=== PATIENT | female | born 1970 | race Caucasian/White ===

== ENCOUNTER 2021-12-06 01:55 | Day surgery (SDC) | payer BC, SELFPAY ==
[2021-11-23 14:10] VITALS: BMI 33.2
--- NOTE | 2021-12-05 17:23 | PM.HPGS ---
History of Present Illness History of Present Illness Consent: Risks, benefits, and alternatives have been discussed and questions answered. Patient agrees to proceed with procedure. Chief complaint: neoplasm screening Narrative: Sujey Marmolejo is a 51 year old female referred for colon cancer screening. Review of Systems Review of Systems: All systems reviewed & are unremarkable except as noted in HPI and below PMFSH Past Medical History Medical History Broken ankle Endometriosis determined by laparoscopy Essential (primary) hypertension Migraine NOS/intractable Unspecified vitamin D deficiency Surgical History Surgical History H/O section Family History Family History Grandparent Diabetes mellitus Family history of Parkinson's disease Family history of malignant neoplasm of ovary Mother Diabetes mellitus Dementia Father Patient's father is Acute myocardial infarction Other Carcinoma of colon Family history of cardiovascular disease Family history of malignant neoplasm Family history of malignant neoplasm of breast Hypertension Social History Social History Years smoked: 10 Smoking status: Former smoker Tobacco type: cigarettes Smoking end date: 11/04/98 Alcohol intake: current Spiritual care concerns: No Meds Home Medications and Allergies Home Medications Medication Instructions Recorded Confirmed Type Tribenzor 20 mg-5 mg-12.5 mg tablet 1 tablet PO DAILY #90 tablet NS 09/12/20 12/06/21 Rx montelukast 10 mg tablet See Rx Instructions .ROUTE 12/07/20 12/06/21 Rx .COMPLEX #90 tablet spironolactone 50 mg tablet 100 mg PO BID 10/16/21 12/06/21 History sumatriptan succinate 25 mg tablet See Rx Instructions PO .COMPLEX #9 10/17/21 12/06/21 Rx tablet Allergies Allergy/AdvReac Type Severity Reaction Status Date / Time Penicillins Allergy Unknown Skin Verified 12/06/21 07:57 Reaction Exam Resp: Auscultation: clear to auscultation bilaterally Cardio: Rate: regular rate Rhythm: regular rhythm GI: GI Palp: Yes Soft to palpation and No Tenderness to palpation present (GI) Assessment and Plan Assessment and plan (1) Colon cancer screening: Code(s): Z12.11 - Encounter for screening for malignant neoplasm of colon Status: Acute Assessment and Plan: Colonoscopy with possible biopsy or polypectomy or cautery or injection of substances.
[2021-12-06 07:58] VITALS: BP 151/110; PULSE 113; RESP 17; TEMP 36.4; O2SAT 98; BMI 31.8
[2021-12-06] MEDS: LACTATED RINGERS 1,000 ML 150 ML IV CONT (08:06)
--- NOTE | 2021-12-06 08:12 | P.PNAN_ITS ---
Anes - Initial Pre Proc Eval Procedure: Operation Date: 12/06/21 09:15 Proposed Procedures p Screening Colonoscopy - Aleksander Fonseca MD Date/Time: 12/06/21 08:12 Surgeon: Aleksander Fonseca MD Pre Op Diagnosis: neoplasm screening Patient Data Age: 51 Gender: F Height: 1.6 m Weight: 81.5 kg Last Vital Signs Temp 36.4 C 12/06/21 07:58 Pulse 113 H 12/06/21 07:58 Resp 17 12/06/21 07:58 BP 151/110 H 12/06/21 07:58 Pulse Ox 98 12/06/21 07:58 Allergies Allergy/AdvReac Type Severity Reaction Status Date / Time Penicillins Allergy Unknown Skin Verified 12/06/21 07:57 Reaction Home Medications Medication Instructions Recorded Confirmed Type Tribenzor 20 mg-5 mg-12.5 mg tablet 1 tablet PO DAILY #90 tablet NS 09/12/20 12/06/21 Rx montelukast 10 mg tablet See Rx Instructions .ROUTE 12/07/20 12/06/21 Rx .COMPLEX #90 tablet spironolactone 50 mg tablet 100 mg PO BID 10/16/21 12/06/21 History sumatriptan succinate 25 mg tablet See Rx Instructions PO .COMPLEX #9 10/17/21 12/06/21 Rx tablet Patient hx anesthesia problems: none Family hx anesthesia problems: none Results Review: All pre-operative results and documents have been reviewed as part of the pre-operative evaluation. [facility] Past Medical History Medical History (Updated 12/06/21 @ 08:12 by Dawit Turcios MD) Broken ankle Endometriosis determined by laparoscopy Essential (primary) hypertension Migraine NOS/intractable Unspecified vitamin D deficiency Surgical History Surgical History H/O section Family History Family History Grandparent Diabetes mellitus Family history of Parkinson's disease Family history of malignant neoplasm of ovary Mother Diabetes mellitus Dementia Father Patient's father is Acute myocardial infarction Other Carcinoma of colon Family history of cardiovascular disease Family history of malignant neoplasm Family history of malignant neoplasm of breast Hypertension Social History Social History Years smoked: 10 Smoking status: Former smoker Tobacco type: cigarettes Smoking end date: 11/04/98 Alcohol intake: current Spiritual care concerns: No Anes - Eval Final PreProcedure Day of Procedure 12/06/21 08:12 Patient weight: obese Heart: regular rate and rhythm Lungs: clear to auscultation Airway: Mallampati scale class II Neurological: alert and oriented Last oral intake: >/= 8 hours ASA classification: II Emergent: no Anesthetic plan: proceed Anesthesia type and monitoring: general GIVS and standard monitoring Results Review: All pre-operative results and documents have been reviewed as part of the pre-operative evaluation. Informed Consent: The patient's anesthetic plan and its attendant risks and benefits were discussed with the patient/family/POA. Questions were solicited and answers provided to the satisfaction of the patient/family/POA.
[2021-12-06 09:37] VITALS: BP 110/69; PULSE 87; RESP 23; O2SAT 99
[2021-12-06 09:47] VITALS: BP 105/71; PULSE 82; RESP 20; O2SAT 98
[2021-12-06 09:57] VITALS: BP 136/88; PULSE 85; RESP 18; O2SAT 98
== END 2021-12-06 10:15 | disposition home or self-care (01) ==
PROVIDERS: PCP Family Medicine; Visit Provider Internal Medicine Gastroenterology
PROC: 0DJD8ZZ Inspection of Lower Intestinal Tract, Via Natural or Artificial Opening Endoscopic (ICD-10-PCS; CPT 45378; principal; 2021-12-06 09:15)
DX: Z12.11 Encounter for screening for malignant neoplasm of colon (principal); K57.30 Diverticulosis of large intestine without perforation or abscess without bleeding; I10 Essential (primary) hypertension; Z87.891 Personal history of nicotine dependence; E66.9 Obesity, unspecified; Z68.31 Body mass index [BMI] 31.0-31.9, adult
CPT/HCPCS: 45378; J2704; J7120

== ENCOUNTER → 2022-01-05 14:12 | Outpatient (CLI) | payer BC, SELFPAY ==
--- NOTE | ~2022-01-05 | DEXA_ITS ---
Bone Density Report Name: EDUIN FARIA Age: 51 Sex: Female Ethnicity: White Date of : 1970 Indication: postmenopausal; screening for osteoporosis; height loss; Referring Provider: THOMAS, ROBIN Study: Bone densitometry was performed. Exam Date: January 05, 2022 Accession number: [id number] Bone Density: Region BMD T-score Z-score Classification AP Spine (L1-L4) 0.954 -0.8 0.1 Normal Femoral Neck (Left) 0.821 -0.3 0.7 Normal Total Hip (Left) 0.960 0.1 0.7 Normal Femoral Neck (Right) 0.785 -0.6 0.4 Normal Total Hip (Right) 0.937 0.0 0.6 Normal Total Hip Mean 0.949 0.1 0.7 Normal World Health Organization criteria for BMD impression classify patients as: Normal (T-score at or above -1.0), Osteopenia (T-score between -1.0 and -2.5), or Osteoporosis (T-score at or below -2.5). 10-year Fracture Risk: FRAX not reported because: All T-scores for Spine Total, Hip Total, Femoral Neck at or above -1.0 Clinical Information Provided by Patient: Has used the following medications: Vitamin D Patient maximum height was 63 Menopause Age: 33 Drinks caffeinated beverages Onset of menses at age 9 Number of children 2 Impression: The patient has normal bone mass. Discussion: BONE DENSITY IS ABOVE THE MINIMUM DESIRABLE LEVEL AT ALL SKELETAL SITES TESTED. This patient?s bone mineral density is above the minimum desirable level (T-score -1.0 or better) at all sites measured. The patient should follow a healthful lifestyle (good nutrition with adequate calcium and vitamin D, and appropriate weight-bearing exercise). Follow-Up: Consider repeating this study in 5 years or sooner if there is some new clinical indication. Reported by: [facility] on 01/05/2022 2:42:00 PM. Reviewed, dictated and finalized at location AAnali [facility] CENTER[facility]hav[facility]
--- NOTE | ~2022-01-05 | MM_ITS ---
EXAMINATION: MM screening rajesh BI w ester HISTORY: Screening mammogram TECHNIQUE: Craniocaudal and mediolateral oblique 3-D tomosynthesis images were obtained and synthetic 2-D images were generated. CAD analysis was submitted and interpreted. COMPARISON: No prior mammogram is available for comparison at this institution. BREAST PARENCHYMAL COMPOSITION: There are scattered areas of fibroglandular density. FINDINGS: RIGHT BREAST: There is a possible mass in the middle third of the central breast 7 cm from the nipple . LEFT BREAST: A mass is present in the anterior third of the outer breast 3 cm from the nipple. IMPRESSION: 1. Bilateral breast findings as described above. 2. Additional mammographic views and possible breast ultrasound are recommended. BI-RADS Category 0: Incomplete: Needs additional imaging evaluation. Reviewed, dictated and finalized at location A. DENT SERVICES SUPERVISOR IMPRESSION: 1. Bilateral breast findings as described above. 2. Additional mammographic views and possible breast ultrasound are recommended . BI-RADS Category 0: Incomplete: Needs additional imaging evaluation.
== END ==
PROVIDERS: PCP Family Medicine; Visit Provider Nurse Practitioner
DX: Z12.31 Encounter for screening mammogram for malignant neoplasm of breast (principal); Z78.0 Asymptomatic menopausal state; R92.8 Other abnormal and inconclusive findings on diagnostic imaging of breast
CPT/HCPCS: 77063; 77067; 77080

== ENCOUNTER → 2022-01-19 08:08 | Outpatient (CLI) | payer BC, SELFPAY ==
--- NOTE | ~2022-01-19 | MMUS_ITS ---
EXAMINATION: MM diagnostic rajesh BI w ester, US breast BI limited HISTORY: Left breast mass and possible right breast mass on screening mammogram TECHNIQUE: Additional 3-D tomosynthesis images of the breasts were performed and synthetic 2-D images were generated. CAD analysis was submitted and interpreted. High resolution limited bilateral breast ultrasound was performed. COMPARISON: 01/05/2022 FINDINGS: MAMMOGRAPHIC FINDINGS: Left breast: There is a 5 mm oval, obscured, equal density mass in the anterior third of the breast a t the 3:00 location 3 cm from the nipple. Right breast: An asymmetry persists in the middle third of the lower breast at the 6:00 location 7 cm from the nipple on the craniocaudal view. ULTRASOUND: Left breast: There is a 5 mm cyst at the 3:00 location 3 cm from the nipple. Right breast: There is a 3 mm cyst at the 7:00 location 4 cm from the nipple. A 4 mm mass at the 6:00 location 5 cm from the nipple has an appearance suggestive of an intramammary lymph node. IMPRESSION: 1. Probably benign right breast mass. 2. Right diagnostic mammogram and ultrasound. BI-RADS category 3, probably benign findings. Reviewed, dictated and finalized at location A. IMPRESSION: 1. Probably benign right breast mass. 2. Right diagnostic mammogram and ultrasound. BI-RADS category 3, probably benign findings.
== END ==
PROVIDERS: PCP Family Medicine; Visit Provider Obstetrics & Gynecology Gynecology
DX: R92.8 Other abnormal and inconclusive findings on diagnostic imaging of breast (principal)
CPT/HCPCS: 76642; 77062; 77066; G0279

== ENCOUNTER → 2022-07-26 08:13 | Outpatient (CLI) | payer BC, SELFPAY ==
--- NOTE | ~2022-07-26 | MMUS_ITS ---
EXAMINATION: MM diagnostic rajesh RT w ester, US breast RT limited HISTORY: Six-month follow-up for probably benign right breast mass TECHNIQUE: Craniocaudal, mediolateral, and mediolateral oblique 3-D tomosynthesis images of the right breast were performed and synthetic 2-D images were generated. CAD analysis was submitted and interp reted. High resolution limited right breast ultrasound was performed. COMPARISON: 01/19/2022, 01/05/2022 BREAST PARENCHYMAL COMPOSITION: There are scattered areas of fibroglandular density. FINDINGS: MAMMOGRAPHIC FINDINGS: There is a stable 6 mm low-density, circumscribed mass at the 6:00 location 6.8 cm from the nipple in the middle third of the breast. No suspicious interval change is identified. ULTRASOUND: There is a stable 4 mm oval, circumscribed, parallel, hypoechoic mass at the 7:00 location 6 cm from the nipple with a central hypoechoic component. There is a 2 mm cyst at the 7:30 location 4 cm from t he nipple. IMPRESSION: 1. Stable, probably benign right breast mass. 2. Recommend 6 month follow-up diagnostic mammogram and right breast ultrasound. BI-RADS category 3, probably benign findings. Reviewed, dictated and finalized at location A. IMPRESSION: 1. Stable, probably benign right breast mass. 2. Recommend 6 month follow-up diagnostic mammogram and right breast ultrasound . BI-RADS category 3, probably benign findings.
== END ==
PROVIDERS: PCP Family Medicine; Visit Provider Obstetrics & Gynecology Gynecology
DX: N63.10 Unspecified lump in the right breast, unspecified quadrant (principal)
CPT/HCPCS: 76642; 77061; 77065; G0279

== ENCOUNTER 2022-12-14 11:35 | Outpatient (CLI) | payer BC, SELFPAY ==
[2022-12-14 19:55] LABS: Anion Gap 6 mmol/L (8-16); Blood Urea Nitrogen 17 mg/dL (7-17); Calcium 9.4 mg/dL (8.4-10.2); Carbon Dioxide 30 mmol/L (22-30); Chloride 98 mmol/L (98-107); Estimated Glomerular Filt Rate > 60; Glucose 92 mg/dL (65-110); Sodium 134 mmol/L (137-145)
== END 2022-12-14 11:36 | disposition home or self-care (01) ==
LOC: ANHGOSHLAB 11:37
PROVIDERS: PCP Family Medicine; Visit Provider Family Medicine
DX: N28.9 Disorder of kidney and ureter, unspecified (principal)
CPT/HCPCS: 36415; 80048

== ENCOUNTER → 2023-01-25 08:22 | Outpatient (CLI) | payer BC, SELFPAY ==
--- NOTE | ~2023-01-25 | MMUS_ITS ---
EXAMINATION: MM diagnostic rajesh BI w ester, US breast RT limited HISTORY: Follow-up right breast mass TECHNIQUE: Additional 3-D tomosynthesis images of the right breast were performed and synthetic 2-D i mages were generated. CAD analysis was submitted and interpreted. High resolution Limited right breas t ultrasound was performed. COMPARISON: Comparison to multiple prior studies sequentially, with oldest reviewed study dated 02/2022. BREAST PARENCHYMAL COMPOSITION: Breast composed of scattered areas of fibroglandular density FINDINGS: MAMMOGRAPHIC FINDINGS: The left breast is stable without evidence for malignancy. There is a focal asymmetry in the lower ce ntral aspect of the right breast, best seen on CC view. ULTRASOUND: Limited right breast ultrasound: At 7:00, 5 cm from the nipple, there is a slightly irregular shaped hypoechoic mass measuring 6 mm with posterior shadowing and internal vascularity. There is antiparall el configuration. At C7-8:00, 4 cm from the nipple there is a 2 mm cyst. IMPRESSION: 1. Complex irregular shaped hypoechoic 6 mm right breast mass at 7:00, 5 cm from the nipple. 2. Ultrasound-guided right breast biopsy recommended. BI-RADS category 4, suspicious findings. Reviewed, dictated and finalized at location A. IMPRESSION: 1. Complex irregular shaped hypoechoic 6 mm right breast mass at 7:00, 5 cm fro m the nipple. 2. Ultrasound-guided right breast biopsy recommended. BI-RADS category 4, suspicious findings.
== END ==
PROVIDERS: PCP Family Medicine; Visit Provider Obstetrics & Gynecology Gynecology
DX: N63.10 Unspecified lump in the right breast, unspecified quadrant (principal); R92.8 Other abnormal and inconclusive findings on diagnostic imaging of breast
CPT/HCPCS: 76642; 77062; 77066; G0279

== ENCOUNTER 2023-02-18 09:23 | Outpatient (CLI) | payer BC, SELFPAY ==
--- NOTE | ~2023-02-18 | MMUS_ITS ---
EXAMINATION: US breast biopsy RT w image, MM post biopsy invasive RT DATE: 02/18/2023 10:56 (accession [id number]), 02/18/2023 10:57 (accession [id number]) INDICATION: Indeterminate mass at the 7:00 location of the right breast. Ultrasound-guided core biops y is requested to evaluate for malignancy. TECHNIQUE AND FINDINGS: The risks and potential benefits of the procedure were discussed with the patient including bleeding and infection. A time out was performed. The skin of the right breast was prepared and draped in usua l sterile fashion. 1% lidocaine was used for superficial anesthesia. 1% lidocaine with epinephrine wa s used for deep anesthesia. A vacuum-assisted biopsy needle was advanced through to the outer edge of the region of interest from an inferior approach utilizing sonographic guidance. A total of three tissue core samples were obtai shane through the lesion. A tissue marker clip was then placed at the biopsy site. Hemostasis was achie petros. A sterile bandage was applied. The patient tolerated procedure well and there was no evidence of immediate complication. The patient was given verbal instructions to return to the Emergency Department in the event of severe breast pa in or rapid breast enlargement. A two view right breast mammogram was obtained to document tissue mar ker clip placement. IMPRESSION: 1. Successful ultrasound-guided vacuum-assisted biopsy of right breast mass with tissue marker placem ent. Reviewed, dictated and finalized at location A. IMPRESSION: 1. Successful ultrasound-guided vacuum-assisted biopsy of right breast mass wit h tissue marker placement.
== END 2023-02-18 09:24 | disposition home or self-care (01) ==
LOC: ANHIMG 09:26
PROVIDERS: PCP Family Medicine; Visit Provider Surgery
DX: N63.13 Unspecified lump in the right breast, lower outer quadrant (principal)
CPT/HCPCS: 19083; 88305; A4648

== ENCOUNTER 2023-07-14 08:39 | Emergency (ER) | payer BC, SELFPAY ==
[2023-07-14 08:51] VITALS: BP 141/90; PULSE 81; RESP 16; TEMP 37.3; O2SAT 99
[2023-07-14 08:52] VITALS: BP 141/90; PULSE 81; RESP 16; TEMP 37.3; O2SAT 99
--- NOTE | 2023-07-14 09:05 | ED.SKABFB ---
HPI - Skin/Abscess/Foreign Bdy General Chief complaint: Skin/Abscess/Foreign Body Stated complaint: Right Leg Bug Bite Time Seen by Provider: 07/14/23 09:05 Source: patient and RN notes reviewed Mode of arrival: ambulatory Limitations: no limitations History of Present Illness HPI narrative: Patient presents today complaining of an insect bite to her right lateral thigh that occurred 6 days ago while she was out gardening. States redness and pain started occurring 2 days later. She describes the pain as severe in shooting and currently rates it 8/10. She has tried no [id number]-[id number] interventions prior to arrival. Related Data Home Medications Medication Instructions Recorded Confirmed finasteride 5 mg tablet 5 mg PO DAILY 12/14/22 07/14/23 Allergies Allergy/AdvReac Type Severity Reaction Status Date / Time Penicillins Allergy Unknown Skin Verified 07/14/23 08:52 Reaction Review of Systems Review of Systems: CONSTITUTIONAL: Denies body aches, fever, chills, or sweats. EYES: Denies visual changes, redness, or discharge. ENT: Denies rhinorrhea, congestion, sore throat, or otalgia. CARDIOVASCULAR: Denies chest pain, palpitations, or edema. RESPIRATORY: Denies cough or dyspnea. GASTROINTESTINAL: Denies abdominal pain, nausea, vomiting, or diarrhea. GENITOURINARY: Denies dysuria or hematuria. SKIN: +insect bite to right lateral thigh MUSCULOSKELETAL: Denies back pain, joint pain, or myalgia. NEUROLOGIC: Denies headache, numbness, tingling, or weakness. PSYCH: Denies depression or anxiety. [facility] Past Medical History Medical History Broken ankle Endometriosis determined by laparoscopy Essential (primary) hypertension Migraine NOS/intractable Unspecified vitamin D deficiency Surgical History Surgical History H/O section H/O sinus surgery History of ankle surgery History of laparoscopy Family History Family History Grandparent Diabetes mellitus Family history of Parkinson's disease Family history of malignant neoplasm of ovary Mother Diabetes mellitus Dementia Father Patient's father is Acute myocardial infarction Other Carcinoma of colon Family history of cardiovascular disease Family history of malignant neoplasm Family history of malignant neoplasm of breast Hypertension Social History Social History Years smoked: 10 Smoking status: Former smoker Tobacco type: cigarettes Smoking end date: 11/04/98 Alcohol intake: current Lack of Transportation: No Lack of Food: Never True Current Housing: I Have Housing Concerned About Future Housing: No Difficulty Paying Gas/Electric Bills: No Difficulty Paying for Meds: No Education: Associate Degree Difficulty w/ Childcare or Family Care: No Spiritual care concerns: No Comments At time of signature, I have reviewed and agree with nursing past medical, surgical, social and family history unless otherwise noted. Please see nursing chart for further information. There is no relevant family history pertinent to the presenting complaint Exam Narrative: GENERAL: Well-appearing, well-nourished, and in no acute distress. HEAD: Normocephalic, atraumatic. EYES: EOMI. No redness or drainage. Conjunctivae normal. ENT: Mucous membranes pink and moist. NECK: Normal AROM. CHEST: No respiratory distress. SKIN: Warm, dry. Capillary refill normal. Normal skin turgor. 2 x 2 cm area erythema and induration in the right lateral thigh with 1 x 1 cm area of ecchymosis in the center with tiny scabbed. Tender to palpation. No fluctuance. NEURO: No focal deficits. Alert and oriented x3. Gait steady. PSYCH: Normal affect. No signs of depression or anxiety.
== END 2023-07-14 09:19 | disposition home or self-care (01) ==
PROVIDERS: Emergency Provider Nurse Practitioner; PCP Family Medicine
DX: S70.361A Insect bite (nonvenomous), right thigh, initial encounter (principal); I10 Essential (primary) hypertension; Z87.891 Personal history of nicotine dependence; W57.XXXA Bitten or stung by nonvenomous insect and other nonvenomous arthropods, initial encounter
CPT/HCPCS: 99213; G0463

== ENCOUNTER → 2023-09-10 09:19 | Outpatient (CLI) | payer BC, SELFPAY ==
--- NOTE | ~2023-09-10 | US_ITS ---
EXAMINATION: US venous doppler [facility] DATE: 09/10/2023 09:44 INDICATION: Varicose veins of the left lower extremity with lower limb pain TECHNIQUE: Wilcox scale images without and with compression and Doppler images of the left lower extrem ity veins were obtained. COMPARISON: None FINDINGS: The left common femoral vein, profunda femoral vein, femoral vein, popliteal vein, peroneal trunk, posterior tibial veins, and greater saphenous vein are patent. No specific sonographic abnorm ality is identified in the area of clinical concern near the left patella. IMPRESSION: 1. Patent left lower extremity veins. No evidence of deep venous thrombosis. Reviewed, dictated and finalized at location L. NNED EQUIPMENT OPERATOR
--- NOTE | ~2023-09-10 | XR_ITS ---
Left Knee Technique: AP, lateral, and sunrise views were obtained. Clinical History: Painful varicose vein Findings: No fracture or dislocation is seen. Osseous alignment is anatomic. Joint spaces are preserv ed without degenerative or erosive change. Soft tissues are unremarkable. No joint effusion is seen. Impression: Unremarkable left knee radiographs. Reviewed, dictated and finalized at location . R TUBE GRADER Impression: Unremarkable left knee radiographs.
== END ==
PROVIDERS: PCP Family Medicine; Visit Provider Physician Assistant
DX: I83.812 Varicose veins of left lower extremity with pain (principal)
CPT/HCPCS: 73562; 93971

== ENCOUNTER 2024-09-15 13:43 | Outpatient (CLI) | payer BC, SELFPAY ==
--- NOTE | ~2024-09-15 | XR_ITS ---
XR shoulder RT min 2V Ordering provider: [facility] History: . M25.511 - Pain in right shoulder . Comparison: None. FINDINGS: BONES: No acute fracture or dislocation. Sparing spurring of the acromion process. JOINT SPACES: The acromioclavicular joint shows mild osteoarthritic changes. The glenohumeral joint i s normal. SOFT TISSUES: Normal. IMPRESSION: No acute osseous abnormality right shoulder. Reviewed, dictated and finalized at location A. SPECIALIST
== END 2024-09-15 13:44 | disposition home or self-care (01) ==
LOC: GOSHIMG 13:44
PROVIDERS: PCP Chiropractor; Visit Provider Nurse Practitioner Family
DX: M25.511 Pain in right shoulder (principal)
CPT/HCPCS: 73030

== ENCOUNTER 2025-01-08 09:48 | Outpatient (CLI) | payer BC, SELFPAY ==
[2025-01-08 15:40] LABS: Kit Draw Collected
== END 2025-01-08 09:49 | disposition home or self-care (01) ==
LOC: ANHGOSHLAB 09:50
PROVIDERS: PCP Family Medicine; Visit Provider Nurse Practitioner Family
DX: K76.0 Fatty (change of) liver, not elsewhere classified (principal); I10 Essential (primary) hypertension; E78.2 Mixed hyperlipidemia; E88.810 Metabolic syndrome; E55.9 Vitamin D deficiency, unspecified
CPT/HCPCS: 36415